=== PATIENT | female | born 1995 | race Caucasian/White ===

== ENCOUNTER → 2020-11-23 | Outpatient (CLI) | payer OTHER ==
[~2020-11-23] MED LIST: LORA10CA PO
--- NOTE | 2020-11-23 09:40 | RAD ---
Exam Date: 11/23/2020 9:27 AM XR FOOT_RIGHT 3 VIEWS Indication: Reason: Hit right foot against hard object / Spl. Instructions: / History: . FINDINGS/ IMPRESSION: No acute fracture or dislocation. Alignment and joint spaces are maintained. The soft tissues are w ithin normal limits. Electronically signed by: Karl Farris MD (11/23/2020 9:38 AM) [id number]
== END ==
LOC: PMG 09:13
PROVIDERS: ATTEND Nurse Practitioner Family
DX: S99.921A Unspecified injury of right foot, initial encounter (principal); X58.XXXA Exposure to other specified factors, initial encounter; Y93.89 Activity, other specified; Y92.89 Other specified places as the place of occurrence of the external cause; Y99.8 Other external cause status
CPT/HCPCS: 73630